=== PATIENT | male | born 1945 | race Caucasian/White ===

== ENCOUNTER 2017-02-09 12:43 | Emergency (ER) | payer OTHER ==
[~2017-02-09] VITALS: Ht 182.9 cm; Wt 85.3 kg
[2017-02-09 13:08] VITALS: BP 116/74
== END 2017-02-09 13:17 | disposition home or self-care (01) ==
LOC: ER 12:43
DX: L02.01 Cutaneous abscess of face (principal)
CPT/HCPCS: 99283

== ENCOUNTER → 2017-04-27 | Outpatient (CLI) | payer OTHER ==
[~2017-04-27] MED LIST: DIATRIZOATE MEGL/DIATRIZOA SOD 30 ML BTL PO ONE; IOPAMIDOL 370 MG/ML 200 ML INFUS..BTL INJ ONE; SODIUM CHLORIDE 0.9% 50ML 50 ML ONE
[2017-04-27 13:33] LABS: BLOOD UREA NITROGEN 16 mg/dL (7-26); BUN/CREATININE RATIO 15 (6-25); CREATININE, SERUM 1.08 mg/dL (0.72-1.25); EST GLOMERULAR FILTRATION RATE > 60 ML/MIN (60-)
--- NOTE | 2017-04-27 14:37 | Diagnostic Imaging Report ---
PROCEDURE: CT ABDOMEN AND PELVIS WITH CONTRAST TECHNIQUE: The abdomen and pelvis were scanned utilizing a multidetector helical scanner from the diaphragm to the lesser trochanter after the IV administration of 100 cc of Isovue 370 and the oral administration of dilute Gastrografin. Coronal and sagittal multiplanar reformations were obtained. COMPARISON: [facility], CT, CT ABDOMEN/PELVIS W, 10/15/2016, 9:02. INDICATIONS: ABDOMINAL PAIN LOWER, DIVERTICULITIS FINDINGS: LOWER THORAX: Linear scarring in the lingula, stable. Atherosclerotic calcification of the coronary arteries. HEPATOBILIARY: Diffuse hepatic steatosis. No focal lesions. No intrahepatic or ductal dilation. Mild dilation of the common bile duct, which measures approximately 8 mm at the dayday hepatis and 7 mm at the pancreatic head. No radiopaque intraluminal filling defects. Cholecystectomy clips. SPLEEN: No splenomegaly. PANCREAS: No focal masses. Stable mild dilation of the pancreatic duct, which measures approximately 5 mm at the neck and 6 mm at the pancreatic head. Stable air and fluid-filled 1.6 and 1.8 cm structures between the second portion of the duodenum and the pancreatic head at the level of the ampulla (series 2, image 31 and sagittal image 50), consistent with duodenal diverticula. ADRENALS: No adrenal nodules. KIDNEYS/URETERS: No hydronephrosis, stones, or solid mass lesions. PELVIC ORGANS/BLADDER: Bladder is mostly decompressed and grossly unremarkable. Prostate is enlarged, measuring 5.9 x 5.4 x 5.1 cm (estimated volume 84 cc). PERITONEUM / RETROPERITONEUM: No free air or fluid. No well-defined fluid collections. LYMPH NODES: No lymphadenopathy. VESSELS: Unremarkable. GI TRACT: No bowel dilation or evidence of obstruction. Descending and sigmoid colon diverticulosis, without diverticulitis. BONES AND SOFT TISSUES: No aggressive lytic lesion. Multilevel degenerative disc changes in the lower thoracic and lumbosacral spine, worse at L4-L5, and L5-S1. Slight leftward curvature of the lumbar spine. Soft tissues are grossly unremarkable. IMPRESSION: 1. No acute abdominopelvic abnormalities. Specifically, no CT evidence of diverticulitis. 2. Descending and sigmoid colon diverticulosis. 3. Diffuse hepatic steatosis. No focal lesions. 4. Stable mild dilation of the common bile duct and pancreatic duct likely secondary to extrinsic compression from 2 duodenal diverticula adjacent to the ampulla. No focal pancreatic lesion or radiopaque intraluminal defect is noted in the CBD. MRI abdomen/MRCP may be obtained for further evaluation, if not previously performed. Rao Le M.D. Dictated by: Rao Le M.D. on 04/27/2017 at 14:36 Electronically approved by: Rao Le M.D. on 04/27/2017 at 14:36
== END ==
LOC: CT 12:41
PROVIDERS: ATTEND Emergency Medicine
DX: R10.9 Unspecified abdominal pain (principal); K30 Functional dyspepsia; R63.4 Abnormal weight loss; K76.0 Fatty (change of) liver, not elsewhere classified; K57.30 Diverticulosis of large intestine without perforation or abscess without bleeding
CPT/HCPCS: 36415; 74177; 82565; 84520; Q9967

== ENCOUNTER → 2018-06-14 | Outpatient (CLI) | payer OTHER ==
--- NOTE | 2018-06-14 11:18 | Diagnostic Imaging Report ---
Exam: Left hip series; 2 views History: Pain Comparison: None available Findings: There is no fracture or dislocation. Mild joint space narrowing is present. Vascular calcification within the superficial femoral artery is present. Soft tissues are intact. Impression: Mild joint space narrowing. Signed by: Dr. Davide Cloud DO on 06/14/2018 11:14 AM
== END ==
LOC: RAD 09:20
PROVIDERS: ATTEND Emergency Medicine
DX: M25.552 Pain in left hip (principal)

== ENCOUNTER → 2019-08-15 | Outpatient (CLI) | payer OTHER ==
--- NOTE | 2019-08-15 10:02 | Diagnostic Imaging Report ---
EXAMINATION: CHEST 2 VIEWS INDICATION: Asthma COMPARISON: Chest radiograph 11/30/2014 FINDINGS: LINES/TUBES:Loop recorder device. LUNGS:The lungs are well-inflated. No focal consolidation or pulmonary edema. PLEURA:No pleural effusion or pneumothorax. MEDIASTINUM:The cardiomediastinal silhouette appears normal in size and shape. Atherosclerotic calcifications of the thoracic aorta. BONES/SOFT TISSUES:No acute osseous injury. Partially visualized cervical spine fusion hardware. ABDOMEN:No free air under the diaphragm. IMPRESSION: No focal pneumonia or pulmonary edema. Signed by: Haleigh Renner MD on 08/15/2019 9:58 AM
== END ==
LOC: RAD 08:59
PROVIDERS: ATTEND Emergency Medicine
DX: J45.909 Unspecified asthma, uncomplicated (principal)
CPT/HCPCS: 71046